=== PATIENT | female | born 1950 | race African-American/Black ===

== ENCOUNTER 2020-08-10 13:19 | Outpatient (CLI) | payer MEDICARE, SELFPAY ==
--- NOTE | ~2020-08-10 | CT_ITS ---
EXAMINATION: CTA chest PE protocol DATE: 08/10/2020 14:11 CDT INDICATION: Right ventricular enlargement. TECHNIQUE: Computed tomographic angiography (CTA) of the chest was performed with 100 mL Omnipaque-35 0 intravenous contrast. The dose-length product was 628.41 mGy-cm. Maximum intensity projection 3D-re constructions of the aorta and other arteries were constructed by the technologist on a separate work station. Automated exposure control and iterative reconstruction technique were employed. COMPARISON: None. FINDINGS: The study is technically adequate without evidence for pulmonary embolism. There is pulmona ry arterial enlargement, consistent with pulmonary hypertension. No significant pleural or pericardia l effusion. No thoracic lymphadenopathy. There is dependent atelectasis. No focal airspace consolidat ion. There is a 7 mm right lower lobe nodule, image 89. No pneumothorax. There is a 3 mm. Fissural no dule, coronal image 68. IMPRESSION: 1. No evidence for pulmonary embolism. No acute cardiopulmonary disease. 2: Pulmonary arterial hypertension. 3: 7 mm right lower lobe nodule. Follow-up CT chest at C6-12 months, then CT at 18-24 months recomme nded if stable. Reviewed, dictated and finalized at location A. IMPRESSION: 1. No evidence for pulmonary embolism. No acute cardiopulmonary disease. 2: Pulmonary arterial hypertension. 3: 7 mm right lower lobe nodule. Follow-up CT chest at C6-12 months, then CT a t 18-24 months recommended if stable.
[2020-08-10 14:15] LABS: Estimated Glomerular Filt Rate > 60
== END 2020-08-10 13:20 | disposition home or self-care (01) ==
PROVIDERS: PCP Family Medicine; Visit Provider Internal Medicine Cardiovascular Disease
DX: R06.09 Other forms of dyspnea (principal); I51.7 Cardiomegaly; R06.02 Shortness of breath; R91.1 Solitary pulmonary nodule
CPT/HCPCS: 71275; Q9967

== ENCOUNTER 2020-08-23 12:25 | Outpatient (CLI) | payer MEDICARE, SELFPAY ==
--- NOTE | ~2020-08-23 | MMUS_ITS ---
EXAMINATION: MM diagnostic skyler BI w yamilka, US breast RT limited HISTORY: Right breast pain TECHNIQUE: Additional 3-D tomosynthesis images of the breasts were performed and synthetic 2-D images were generated. CAD analysis was submitted and interpreted. High resolution Limited right breast ult rasound was performed. COMPARISON: Comparison to multiple prior studies sequentially, with oldest reviewed study dated 08/17. BREAST PARENCHYMAL COMPOSITION: BREAST PARENCHYMAL COMPOSITION: There are scattered areas of fibroglandular density. FINDINGS: MAMMOGRAPHIC FINDINGS: There are no suspicious masses, calcifications or architectural distortion in either breast to sugges t malignancy. ULTRASOUND: Limited left breast ultrasound: Normal heterogeneous echotexture without focal solid or cystic mass. IMPRESSION: 1. No mammographic or sonographic evidence for malignancy. 2. Routine yearly screening mammogram and regular clinical breast examination are recommended. BI-RADS Category 1: Negative Reviewed, dictated and finalized at location A. IMPRESSION: 1. No mammographic or sonographic evidence for malignancy. 2. Routine yearly screening mammogram and regular clinical breast examination a re recommended. BI-RADS Category 1: Negative
== END 2020-08-23 12:26 | disposition home or self-care (01) ==
PROVIDERS: PCP Family Medicine; Visit Provider Family Medicine
DX: N64.4 Mastodynia (principal)
CPT/HCPCS: 76642; 77062; 77066; G0279

== ENCOUNTER 2020-08-25 00:48 | Outpatient (CLI) | payer MEDICARE, SELFPAY ==
[2020-08-25 18:59] LABS: SARS-CoV-2 RNA PCR Negative
== END 2020-08-25 00:49 | disposition home or self-care (01) ==
LOC: ANHCOVIDDT 00:48
PROVIDERS: PCP Family Medicine; Visit Provider Internal Medicine Cardiovascular Disease
DX: Z01.812 Encounter for preprocedural laboratory examination (principal); Z20.828 Contact with and (suspected) exposure to other viral communicable diseases
CPT/HCPCS: 87635; C9803; U0003

== ENCOUNTER 2020-08-28 01:38 | Day surgery (SDC) | payer MEDICARE, SELFPAY ==
[2020-08-27 14:29] VITALS: BMI 34.8
[2020-08-28] VITALS (8 sets, daily range): BP systolic 122–151; BP diastolic 70–92; PULSE 65–76; RESP 14–19; TEMP 36.1; O2SAT 92–99
[2020-08-28 10:15] LABS: Basophils Absolute Auto 0.1 K/mm3 (0.0-0.1); Basophils Percent Auto 0.9 % (0.2-1.2); Eosinophils Absolute Auto 0.5 K/mm3 (0-0.3); Eosinophils Percent Auto 7.2 % (0-4.4); Hematocrit 46.4 % (37.0-47.0); Hemoglobin 15.7 g/dL (12.0-15.0); Immature Granulocyte Absolute 0.02 K/mm3 (0.00-0.031); Immature Granulocyte Percent A 0.3 % (0-0.5); Lymphocytes Absolute Auto 1.81 K/mm3 (0.9-3.2); Lymphocytes Percent Auto 28.5 % (18.3-44.2); Mean Corpuscular HGB Conc 33.8 g/dl (32-36); Mean Corpuscular Hemoglobin 31.2 pg (26-34); Mean Corpuscular Volume 92.1 fl (80-100); Mean Platelet Volume 9.5 fl (7.4-10.4); Monocytes Absolute Auto 0.6 K/mm3 (0.1-0.6); Monocytes Percent Auto 9.9 % (2.6-8.5); Neutrophils Absolute Auto 3.4 K/mm3 (1.3-6.7); Neutrophils Percent Auto 53.2 % (45.5-73.1); Platelet Count Result 287 k/mm3 (150-375); Red Blood Count 5.04 M/mm3 (4.2-5.4); Red Cell Distribution Width 13.1 % (11.5-14.5); White Blood Count 6.4 K/mm3 (4.5-10.0)
[2020-08-28 10:26] LABS: Anion Gap 9 mmol/L (8-16); Blood Urea Nitrogen 17 mg/dL (7-17); Calcium 9.8 mg/dL (8.4-10.2); Carbon Dioxide 30 mmol/L (22-30); Chloride 102 mmol/L (98-107); Estimated CRCL calculation 54 ml/min; Estimated Glomerular Filt Rate > 60; Glucose 113 mg/dL (65-105); Potassium 3.9 mmol/L (3.4-5.0); Sodium 141 mmol/L (137-145)
--- NOTE | 2020-08-28 10:34 | WPDMODSED ---
Moderate Sedation Note-Pt Data Patient Data Allergies Allergy/AdvReac Type Severity Reaction Status Date / Time codeine Allergy Unknown Unknown Verified 08/16/20 14:23 Keazykf-Fjf-Xyt Reductase Allergy Unknown myalgia Verified 08/16/20 14:23 Inhibitor metoprolol AdvReac Severe LOC Verified 08/16/20 14:23 hydromorphone AdvReac Unknown Nausea and Verified 08/16/20 14:23 Vomiting Home Medications Medication Instructions Recorded Confirmed Type aspirin 81 mg tablet,delayed 81 mg PO DAILY #90 tablet 05/01/20 08/27/20 Rx release ergocalciferol (vitamin D2) 1,250 50,000 unit PO WEEKLY #14 cap 05/01/20 08/27/20 Rx mcg (50,000 unit) capsule metformin 500 mg tablet,extended 500 mg PO BID #180 tablet 05/01/20 08/27/20 Rx release 24 hr omeprazole 40 mg capsule,delayed 40 mg PO DAILY #90 cap 07/19/20 08/27/20 Rx release diltiazem HCl 120 mg 120 mg PO Q12H #60 cap 08/16/20 08/27/20 Rx capsule,extended release 12 hr ezetimibe 10 mg tablet 10 mg PO DAILY #90 tablet 08/16/20 08/27/20 Rx hydralazine 25 mg tablet 25 mg PO TID #90 tablet 08/16/20 08/27/20 Rx irbesartan 150 1 tablet PO DAILY #90 tablet 08/16/20 08/27/20 Rx mg-hydrochlorothiazide 12.5 mg tablet furosemide 20 mg tablet 20 mg PO QAM #30 tablet 08/20/20 08/27/20 Rx cyanocobalamin (vitamin B-12) 100 mcg PO DAILY 08/27/20 08/27/20 History olmesartan-hydrochlorothiazide 1 tablet PO DAILY 08/27/20 08/27/20 History [Benicar HCT] Current Medications: Active Medications Sodium Chloride (Normal Saline Iv) 500 mls @ 100 mls/hr IV CONT .Q5H KAYLEE Sedation/Anesthesia: No previous sedation/anesthesia problems (including family history). [facility] Past Medical History Medical History (Updated 08/26/20 @ 17:29 by Radha Bruno MD) Abdominal aortic atherosclerosis Asthma Atherosclerosis of iliac artery Benign reactive hypertension Borderline diabetes Controlled diabetes mellitus without complication Coronary atherosclerosis Mixed hyperlipidemia Obesity (BMI 35.0-39.9 without comorbidity) Pulmonary HTN Family History Family History Mother Hypertension Cerebrovascular accident Family history of diabetes mellitus in first degree relative Diabetes mellitus Sibling Diabetes mellitus Hypertension Father Family history of malignant neoplasm of esophagus Other Family history of cardiovascular disease Family history of malignant neoplasm Family history of malignant neoplasm of breast Family history of malignant neoplasm of thyroid Social History Social History (Updated 08/16/20 @ 14:24 by Connie Castillo) Social History: Smoking status: Never smoker Second hand tobacco smoke exposure: Yes Alcohol intake: never Substance use: never Substance use type: does not use Living arrangements: alone Additional living arrangements comments: pt lives with her son Gender identity (if verbalized by the patient): Female Spiritual care concerns: No Mod Sed Physical Exam Physical Exam Pre Procedural Exam: Normal: Airway Hours since solid foods: 10 Hours since liquid intake: 10 Internal Medicine - PN: Obj Da Meds/Results Medications: Active Medications Generic Name Dose Route Start Last Admin Trade Name Jose Fq PRN Reason Stop Dose Admin Sodium Chloride 500 mls @ 100 mls/hr 08/28/20 06:00 Normal Saline Iv IV CONT .Q5H KAYLEE Labs CBC & Chem 7: 08/28/20 10:04 08/28/20 10:04 Labs: Laboratory Results - last 24 hr 08/28/20 08/28/20 10:04 10:04 WBC 6.4 RBC 5.04 Hgb 15.7 H Hct 46.4 MCV 92.1 MCH 31.2 MCHC 33.8 RDW 13.1 Plt Count 287 MPV 9.5 Immature Gran % (Auto) 0.3 Neut % (Auto) 53.2 Lymph % (Auto) 28.5 [place] % (Auto) 9.9 H Eos % (Auto) 7.2 H Baso % (Auto) 0.9 Lymph # (Auto) 1.81 [place] # (Auto) 0.6 Eos # (Auto) 0.5 H Baso # (Auto) 0.1 Abs Immat
[2020-08-28 10:41] LABS: INR 0.9
--- NOTE | 2020-08-28 10:58 | WPDHPUPDATE1 ---
History and Physical Update Update Date/Time: 08/28/20 10:58 History and Physical has been reviewed, including an updated exam of the patient. There are NO changes in the patient's condition. Risks, benefits, and alternatives have been discussed and questions answered. Patient agrees to proceed with procedure.
--- NOTE | 2020-08-28 12:01 | WPDCARDPROC ---
Cardiac Cath Procedure Note Date of procedure:: 08/28/20 Performing physician:: Mg Canales MD Procedure Procedure note:: RIGHT AND LEFT HEART CATHETERIZATION AND CORONARY ANGIOGRAM REPORT DATE OF PROCEDURE: 08/28/2020 INDICATION FOR PROCEDURE: Shortness of breath, pulmonary hypertension BRIEF CLINICAL HISTORY: 69-year-old female with system hypertension, diabetes mellitus, recently diagnosed severe pulmonary hypertension was reported by Dr. De Souza for a right and left heart catheterization in the setting of worsening shortness of breath and abnormal MPI . Patient's echocardiogram from 08/16/2020 showed hyperdynamic LV systolic function, moderate RV enlargement, severe pulmonary hypertension with RVSP 82 mmHg, mild TR. Benefits and risks of the procedure were discussed with the patient in depth, and informed consent was obtained prior to the procedure. Risks of the procedure include but are not limited to vascular complications including groin hematoma, retroperitoneal bleed, vessel perforation; periprocedural [place], cardiac arrhythmias, stroke, contrast induced nephropathy, and . After discussing all the benefits, risks and alternatives, patient was willing to proceed with the procedure. PROCEDURES PERFORMED: 1. Left heart catheterization- Selective left and right coronary angiogram; left ventriculogram and hemodynamic assessment 2. Right heart catheterization with hemodynamic assessment 3. Selective right common femoral angiogram and deployment of Angio-Seal hemostatic device 4. Moderate sedation-CPT code 43879 MODERATE SEDATION: Midazolam 1 mg; fentanyl 25 mcg; Start time 1057 , Stop time 1152 ; Total [id number]-[id number] time 55 minutes; Sena Lamar RN was trained observer for moderate sedation. ACCESS SITE: Right common femoral artery and vein PROCEDURE NOTE: After obtaining informed consent, patient was brought to catheterization lab and prepped and draped in a usual sterile manner. After local anesthesia with lidocaine, right common femoral artery access was taken with micropuncture needle followed by insertion of a 5 German sheath. Right common femoral venous access was taken with micropuncture needle followed by insertion of a 7 German sheath. Right heart catheterization was performed using C Staples-Efrain catheter. Pressures were measured in the right atrium, right ventricle, pulmonary artery, pulmonary capillary. O2 saturations were taken from the femoral artery, right atrium, right ventricle, pulmonary artery. Cardiac output was measured using Madhu's method. After completion of right heart catheterization, attention was shifted to the left heart catheterization. Selective left and right coronary angiogram was performed using 5 German JL4 and JR4 catheters respectively. Orthogonal views were taken. Next, a 5 German pigtail catheter was advanced in the LV cavity and was flushed with normal saline. LV pressure measurement was performed. After this, left ventriculogram was performed. The catheter was flushed again, and gradient across the aortic valve was measured on the pullback of the catheter. Finally, selective right common femoral angiogram was performed followed by successful deployment of Angio-Seal vascular closure device. Manual pressure was used for local hemostasis of femoral venous access site. Patient tolerated procedure well without any immediate procedure related complications. FINDINGS: LEFT HEART CATHETERIZATION: LEFT MAIN CORONARY: The left main coronary artery is a large caliber vessel, no angiographic significant focal stenosis seen. The vessel bifurcates in the LAD and left circumflex branches at almost right angles. LEFT ANTERIOR DESCENDING ARTERY: the LAD is a medium to large caliber vessel in the proximal and mid segment, tortuous, tapers distally and reaches the LV apex. There is minimal block in the prox/mid segment and a focal area of minimal plaque with kinking in the mid segment at the orig
== END 2020-08-28 16:15 | disposition home or self-care (01) ==
PROVIDERS: PCP Family Medicine; Visit Provider Internal Medicine Cardiovascular Disease
PROC: 4A023N8 Measurement of Cardiac Sampling and Pressure, Bilateral, Percutaneous Approach (ICD-10-PCS; CPT 93453; principal; 2020-08-28 11:00)
DX: R94.39 Abnormal result of other cardiovascular function study (principal); I27.20 Pulmonary hypertension, unspecified; R06.02 Shortness of breath; J44.9 Chronic obstructive pulmonary disease, unspecified; R01.1 Cardiac murmur, unspecified; Z80.0 Family history of malignant neoplasm of digestive organs; I51.7 Cardiomegaly; E11.59 Type 2 diabetes mellitus with other circulatory complications
CPT/HCPCS: 36415; 80048; 85025; 85610; 93460; C1760; C1887; C1894; G0269; J1644; J2250; J3010; J7040

== ENCOUNTER 2021-02-24 22:56 | Emergency (ER) | payer MEDICARE, SELFPAY ==
--- NOTE | ~2021-02-24 | CT_ITS ---
EXAMINATION: CT abdomen pelvis w con EXAM DATE: 02/25/2021 01:35 INDICATION: Abdominal pain, left flank pain, symptoms 1 day. TECHNIQUE: Spiral CT of the abdomen and pelvis was performed following intravenous injection of 100 m L Omnipaque 350. Axial, coronal and sagittal images of the abdomen and pelvis were reviewed. The do se-length product (DLP) for this examination was 1231.80 mGy-cm. The exposure was tailored according to patient size (auto mA exposure control), and iterative reconstruction (ASIR) was used as addition al dose reduction technique. Comparison is made to prior examination from 01/17/2018. FINDINGS: Evidence of prior laparotomy and right inguinal surgery. The liver, spleen, adrenal glands and pancreas are unremarkable. Gallbladder is unremarkable. No biliary obstruction. Portal and sp lenic veins are patent. Kidneys enhance symmetrically. There is no hydronephrosis. The uterus is anteverted and morphologically normal. The bladder is unremarkable. There is no retroperitoneal or pelvic lymphadenopathy. There is mild to moderate scattered arteriosclerotic disease. The appendix is normal. The stomach and small bowel are unremarkable. There is expected amount of c olonic stool. No free intraperitoneal gas. The heart is normal in size. The main, central pulmona ry arteries are dilated which can indicate elevated pulmonary arterial pressure, pulmonary arterial h ypertension. There are no pericardial or pleural effusions. The lung bases are unremarkable. There are no osteoblastic or osteolytic lesions identified. IMPRESSION: 1. No acute intra-abdominal findings. 2. Pulmonary arterial hypertension. Reviewed, dictated and finalized at location A.
[2021-02-24 23:00] VITALS: BP 157/93; PULSE 93; RESP 20; TEMP 36.6; O2SAT 94
[2021-02-24 23:15] LABS: Basophils Percent Auto 0.6 % (0.2-1.2); Eosinophils Absolute Auto 0.5 K/mm3 (0-0.3); Eosinophils Percent Auto 6.8 % (0-4.4); Hematocrit 43.5 % (37.0-47.0); Hemoglobin 14.4 g/dL (12.0-15.0); Immature Granulocyte Absolute 0.02 K/mm3 (0.00-0.031); Immature Granulocyte Percent A 0.3 % (0-0.5); Lymphocytes Absolute Auto 2.65 K/mm3 (0.9-3.2); Lymphocytes Percent Auto 38.2 % (18.3-44.2); Mean Corpuscular HGB Conc 33.1 g/dl (32-36); Mean Corpuscular Hemoglobin 30.6 pg (26-34); Mean Corpuscular Volume 92.6 fl (80-100); Mean Platelet Volume 9.2 fl (7.4-10.4); Monocytes Percent Auto 14.3 % (2.6-8.5); Neutrophils Absolute Auto 2.8 K/mm3 (1.3-6.7); Neutrophils Percent Auto 39.8 % (45.5-73.1); Platelet Count Result 235 k/mm3 (150-375); Red Cell Distribution Width 13.6 % (11.5-14.5); White Blood Count 6.9 K/mm3 (4.5-10.0)
[2021-02-24 23:29] LABS: Alanine Aminotransferase 22 U/L (4-35); Albumin Level 4.3 g/dL (3.5-5.1); Alkaline Phosphatase 56 U/L (38-126); Anion Gap 7 mmol/L (8-16); Aspartate Amino Transferase 37 U/L (14-36); Bilirubin,Total 0.4 mg/dL (0.2-1.3); Blood Urea Nitrogen 22 mg/dL (7-17); Calcium 9.3 mg/dL (8.4-10.2); Carbon Dioxide 30 mmol/L (22-30); Chloride 103 mmol/L (98-107); Estimated CRCL calculation 49 ml/min; Estimated Glomerular Filt Rate 59; Glucose 108 mg/dL (65-105); Lipase 158 U/L (23-300); Potassium 3.7 mmol/L (3.4-5.0); Sodium 140 mmol/L (137-145)
[2021-02-25 00:28] LABS: Add Urine Microscopic? YES; Appearance Urine Clear (Clear); Bilirubin Urine Negative (Negative); Blood Urine Negative (Negative); Color Urine Yellow (Yellow); Glucose Urine UA Negative (Negative); Ketones Urine Negative (Negative); Leukocyte Esterase Ur Trace LEU/UL (Negative); Mucus Urine Rare /lpf; Nitrate Urine Negative (Negative); Protein Urine 1+ mg/dL (Negative); RBC Urine 0-2 /hpf (0-2); Specific Grav Ur 1.023 (1.001-1.035); Squamous Epithelial Cell Urine Few /hpf (Few); WBC Urine 0-3 /hpf
--- NOTE | 2021-02-25 01:05 | ED.ABDPAIN ---
HPI - Abdominal Pain General Chief Complaint: Abdominal Pain Stated Complaint: left flank and back pain Time Seen by Provider: 02/25/21 00:49 Source: RN notes reviewed History of Present Illness HPI narrative: Patient presents emergency department from home for abdominal pain. Patient states symptoms began approximately 1400 today. Pain is located left lateral abdomen described as sharp and stabbing. Pain is worse with movement denies any nausea vomiting diarrhea or any other symptoms states she took no pain medication for the symptoms at home. Denies any fevers or chills chest pain shortness of breath Related Data Home Medications Medication Instructions Recorded Confirmed cyanocobalamin (vitamin B-12) 100 mcg PO DAILY 08/27/20 09/20/20 olmesartan-hydrochlorothiazide 1 tablet PO DAILY 08/27/20 09/20/20 [Benicar HCT] Allergies Allergy/AdvReac Type Severity Reaction Status Date / Time codeine Allergy Unknown Unknown Verified 02/24/21 23:04 Ssmmxog-Kkd-Acw Reductase Allergy Unknown myalgia Verified 02/24/21 23:04 Inhibitor metoprolol AdvReac Severe LOC Verified 02/24/21 23:04 hydromorphone AdvReac Unknown Nausea and Verified 02/24/21 23:04 Vomiting Review of Systems Review of Systems: Narrative: Gen.: Denies fevers or chills ENT: Denies congestion Respiratory: Denies shortness of breath or cough CV: Denies chest pain or palpitations GI: See HPI denies burning, urgency, frequency or hematuria Musculoskeletal: Denies back pain or muscle pain Neuro: Denies numbness, tingling, weakness or focal weakness Skin: Denies rash Except as documented, all other systems reviewed and negative [facility] Past Medical History Medical History Abdominal aortic atherosclerosis Asthma Atherosclerosis of iliac artery Benign reactive hypertension Borderline diabetes Controlled diabetes mellitus without complication Coronary atherosclerosis Mixed hyperlipidemia Obesity (BMI 35.0-39.9 without comorbidity) Pulmonary HTN Sleep disorder Family History Family History Mother Hypertension Cerebrovascular accident Family history of diabetes mellitus in first degree relative Diabetes mellitus Sibling Diabetes mellitus Hypertension Father Family history of malignant neoplasm of esophagus Other Family history of cardiovascular disease Family history of malignant neoplasm Family history of malignant neoplasm of breast Family history of malignant neoplasm of thyroid Social History Social History Social History: Smoking status: Never smoker Second hand tobacco smoke exposure: Yes Alcohol intake: never Substance use: never Substance use type: does not use Additional living arrangements comments: pt lives with her son Gender identity (if verbalized by the patient): Female Spiritual care concerns: No Exam Narrative: Exam Narrative: APPEARANCE: No acute distress, nontoxic, resting in bed HEENT: Normocephalic, atraumatic, OMM RESPIRATORY: No respiratory distress, clear to auscultation bilaterally with no rhonchi wheezing or rales CARDIOVASCULAR: RRR s murmur ABDOMINAL: Soft nondistended tender to palpation left lateral abdomen no tenderness right upper quadrant and right lower quadrant no flank tenderness MUSCULOSKELETAl: Moves all extremities. No clubbing, cyanosis or edema. Back: No midline thoracic or lumbar tenderness palpation tender palpation left paravertebral muscles T2-4 pain increased with rotation of the torso and forward flexion NEURO: Awake and alert. Following commands, speech normal, no focal deficits SKIN:: Warm, dry. Normal Color PSYCHIATRIC: Normal affect/mood Course Course Emergency Course: Discussed with patient results of workup and diagnosis. Discussed need for follow-up with primary care, proper use of m
[2021-02-25 01:12] VITALS: BP 160/101; PULSE 82; RESP 15; O2SAT 96
[2021-02-25] MEDS: SODIUM CHLORIDE 0.9% IV 1,000 ML 999 ML IV CONT (01:17)
[2021-02-25 02:55] VITALS: BP 143/101; PULSE 75; RESP 19; O2SAT 96
--- NOTE | 2021-02-25 03:08 | PC.NURSE ---
Upon discharge pt. ambulating w/ rn along side. pt. stops and states she is short of breath. RN placed pt. in wheelchair. Pt. states she does not want to be treated for this. pt. states she sees her PCP for this. ERP notified.
== END 2021-02-25 02:55 | disposition home or self-care (01) ==
PROVIDERS: Emergency Provider Emergency Medicine; PCP Family Medicine
DX: M54.5 Low back pain (principal); I70.0 Atherosclerosis of aorta; I70.8 Atherosclerosis of other arteries; J45.909 Unspecified asthma, uncomplicated; I10 Essential (primary) hypertension; E11.9 Type 2 diabetes mellitus without complications; E78.2 Mixed hyperlipidemia; E66.9 Obesity, unspecified; Z68.35 Body mass index [BMI] 35.0-35.9, adult; I27.20 Pulmonary hypertension, unspecified; G47.9 Sleep disorder, unspecified; Z79.84 Long term (current) use of oral hypoglycemic drugs
CPT/HCPCS: 36415; 74177; 80053; 81001; 83690; 85025; 96361; 96374; 99284; J0131; J7030; Q9967

== ENCOUNTER 2021-09-25 08:03 | Outpatient (CLI) | payer MEDICARE, SELFPAY ==
--- NOTE | ~2021-09-25 | MM_ITS ---
EXAMINATION: MM screening skyler BI w yamilka HISTORY: Screening mammogram TECHNIQUE: Craniocaudal and mediolateral oblique 3-D tomosynthesis images were obtained and synthetic 2-D images were generated. CAD analysis was submitted and interpreted. COMPARISON: 09/04/2020 bilateral diagnostic mammogram and limited right breast ultrasound 09/19/2019, 08/03/2018 bilateral screening mammogram examinations BREAST PARENCHYMAL COMPOSITION: There are scattered areas of fibroglandular density. FINDINGS: There is no evidence of suspicious mass, calcification, or architectural distortion to sugg est malignancy in either breast. There has been no suspicious interval change. IMPRESSION: 1. No mammographic evidence of malignancy. 2. Recommend routine screening mammography in one year. BI-RADS Category 1: Negative Reviewed, dictated and finalized at location A. RR TECHNICIAN
== END 2021-09-25 08:04 | disposition home or self-care (01) ==
LOC: ANHIMG 08:05
PROVIDERS: PCP Family Medicine; Visit Provider Physician Assistant
DX: Z12.31 Encounter for screening mammogram for malignant neoplasm of breast (principal)
CPT/HCPCS: 77063; 77067

== ENCOUNTER 2021-10-15 23:14 | Emergency (ER) | payer MEDICARE, SELFPAY ==
[2021-10-15 23:22] VITALS: BP 191/99; PULSE 101; RESP 17; TEMP 36.4; O2SAT 97
--- NOTE | 2021-10-16 01:22 | ECG_ITS ---
Measurements Intervals [place] Rate: 80 P: 73 CA: 180 QRS: 116 QRSD: 102 T: -35 QT: 399 QTc: 463 Interpretive Statements SINUS RHYTHM RIGHT AXIS DEVIATION POSSIBLE LEFT ATRIAL ENLARGEMENT ST-T WAVE ABNORMALITY IN ANTEROLAT/INF LEADS- CONSIDER ISCHEMIA ABNORMAL ECG Electronically Signed On 10-16-2021 6:37:32 SENIOR JAVA DEVELOPER by Temo Burciaga D.O.
[2021-10-16 01:38] VITALS: BP 158/101
[2021-10-16 01:45] LABS: Basophils Percent Auto 0.6 % (0.2-1.2); Eosinophils Absolute Auto 0.5 K/mm3 (0-0.3); Eosinophils Percent Auto 6.9 % (0-4.4); Hematocrit 41.5 % (37.0-47.0); Hemoglobin 13.9 g/dL (12.0-15.0); Immature Granulocyte Absolute 0.03 K/mm3 (0.00-0.031); Immature Granulocyte Percent A 0.4 % (0-0.5); Lymphocytes Absolute Auto 1.69 K/mm3 (0.9-3.2); Lymphocytes Percent Auto 24.7 % (18.3-44.2); Mean Corpuscular HGB Conc 33.5 g/dl (32-36); Mean Corpuscular Hemoglobin 31.7 pg (26-34); Mean Corpuscular Volume 94.7 fl (80-100); Mean Platelet Volume 9.2 fl (7.4-10.4); Monocytes Absolute Auto 0.8 K/mm3 (0.1-0.6); Neutrophils Absolute Auto 3.9 K/mm3 (1.3-6.7); Neutrophils Percent Auto 56.4 % (45.5-73.1); Platelet Count Result 274 k/mm3 (150-375); Red Blood Count 4.38 M/mm3 (4.2-5.4); Red Cell Distribution Width 13.5 % (11.5-14.5); White Blood Count 6.8 K/mm3 (4.5-10.0)
[2021-10-16 01:58] LABS: Alanine Aminotransferase 19 U/L (4-35); Albumin Level 4.4 g/dL (3.5-5.1); Alkaline Phosphatase 64 U/L (38-126); Anion Gap 12 mmol/L (8-16); Aspartate Amino Transferase 30 U/L (14-36); Bilirubin,Total 0.8 mg/dL (0.2-1.3); Blood Urea Nitrogen 17 mg/dL (7-17); Calcium 9.3 mg/dL (8.4-10.2); Carbon Dioxide 25 mmol/L (22-30); Chloride 102 mmol/L (98-107); Estimated CRCL calculation 63 ml/min; Estimated Glomerular Filt Rate > 60; Glucose 114 mg/dL (65-110); Potassium 3.3 mmol/L (3.4-5.0); Sodium 139 mmol/L (137-145)
[2021-10-16 02:09] LABS: Troponin I < 0.012 ng/mL (0.000-0.034)
[2021-10-16 03:06] VITALS: BP 150/98; PULSE 82; RESP 18; O2SAT 97
--- NOTE | 2021-10-16 03:10 | ED.GENADULT ---
HPI - General Adult General Chief complaint: Recheck/Abnormal Lab/Rx Stated complaint: high blood pressure Time Seen by Provider: 10/16/21 00:49 History of Present Illness HPI narrative: Patient 70-year-old female presents emerged department with chief complaint of high blood pressure. The patient has history of hypertension and this evening took her blood pressure and it was elevated the patient states she had little bit of a mild headache denies chest pain denies shortness of breath denies focal neurological deficit. The patient states that she has history of pulmonary hypertension reports that her toe puncher removed some of her medications a few months ago and her blood pressure has been gradually trending up. Patient reports that symptoms or not worsened by anything or they improved by Related Data Home Medications Medication Instructions Recorded Confirmed cyanocobalamin (vitamin B-12) 100 mcg PO DAILY 08/27/20 08/29/21 tadalafil 20 mg tablet 40 mg PO DAILY tablet 02/28/21 08/29/21 treprostinil diolamine 2.5 mg 2.5 mg PO Q8H 07/09/21 08/29/21 tablet,extended release Allergies Allergy/AdvReac Type Severity Reaction Status Date / Time codeine Allergy Unknown Unknown Verified 10/16/21 00:40 Kcqgjgh-SHZ-KhD Reductase Allergy Unknown myalgia Verified 10/16/21 00:40 Inhibitor [Dwbeity-Ilz-Tcl Reductase Inhibitor] metoprolol AdvReac Severe LOC Verified 10/16/21 00:40 hydromorphone AdvReac Unknown Nausea and Verified 10/16/21 00:40 Vomiting Review of Systems Review of Systems: A 10 system review of systems was completed on the patient and is negative except for what is stated in the HPI. Nursing and ancillary documentation was reviewed. [facility] Past Medical History Medical History Abdominal aortic atherosclerosis Asthma Atherosclerosis of iliac artery Benign reactive hypertension Borderline diabetes Controlled diabetes mellitus without complication Coronary atherosclerosis Mixed hyperlipidemia Obesity (BMI 35.0-39.9 without comorbidity) Pulmonary HTN Sleep disorder Family History Family History Mother Hypertension Cerebrovascular accident Family history of diabetes mellitus in first degree relative Diabetes mellitus Sibling Diabetes mellitus Hypertension Father Family history of malignant neoplasm of esophagus Other Family history of cardiovascular disease Family history of malignant neoplasm Family history of malignant neoplasm of breast Family history of malignant neoplasm of thyroid Social History Social History Social History: Smoking status: Never smoker Second hand tobacco smoke exposure: Yes Alcohol intake: never Alcohol use details: rare, holidays Substance use: never Substance use type: does not use Additional living arrangements comments: pt lives with her son Gender identity (if verbalized by the patient): Female Sexual Orientation (if Verbalized by the Patient): Straight or Heterosexual Spiritual care concerns: No Exam Narrative: GENERAL: Well-appearing, well-nourished, and in no acute distress. HEAD: Normocephalic, atraumatic. EYES: PERRLA and EOMI. ENT: Nares clear, no rhinorrhea or epistaxis. Mucous membranes moist. NECK: Supple. CHEST: Clear to auscultation. No respiratory distress. HEART: Regular rate and rhythm. No murmur heard. Normal peripheral pulses. ABDOMEN: Soft, nontender, nondistended, normal active bowel sounds. EXTREMITIES: Normal range of motion. No edema. SKIN: Warm, dry, no rash. NEURO: No focal deficits. Alert and oriented x3. PSYCH: Normal mood and affect. Course Course Emergency Course: EKG is sinus rhythm rate of [address] elevation or ST depression Vital Signs Vital signs: Vital Signs Temperature 3
== END 2021-10-16 03:29 | disposition home or self-care (01) ==
PROVIDERS: Emergency Provider Emergency Medicine; PCP Family Medicine
DX: I10 Essential (primary) hypertension (principal); J45.909 Unspecified asthma, uncomplicated; I27.20 Pulmonary hypertension, unspecified
CPT/HCPCS: 36415; 80053; 84484; 85025; 93005; 99283

== ENCOUNTER 2021-11-12 13:53 | Outpatient (CLI) | payer MEDICARE, SELFPAY ==
--- NOTE | ~2021-11-12 | DEXA_ITS ---
Bone Density Report Name: JORGE ROSADO Age: 71 Sex: Female Ethnicity: Black Date of : 1950 Indication: postmenopausal; height loss; asthma or emphysema; hysterectomy; Referring Provider: JEOVANY, FRANCISCO Skelton Study: Bone densitometry was performed. Exam Date: November 12, 2021 Accession number: [id number] Bone Density: Region BMD T-score Z-score Classification AP Spine (L1-L4) 0.980 -0.6 1.0 Normal Femoral Neck (Left) 0.860 0.1 0.9 Normal Total Hip (Left) 0.885 -0.5 0.3 Normal Total Hip Bilateral Avg 0.901 -0.4 0.4 Normal Femoral Neck (Right) 0.900 0.5 1.2 Normal Total Hip (Right) 0.917 -0.2 0.5 Normal World Health Organization criteria for BMD impression classify patients as: Normal (T-score at or above -1.0), Osteopenia (T-score between -1.0 and -2.5), or Osteoporosis (T-score at or below -2.5). 10-year Fracture Risk: FRAX not reported because: All T-scores for Spine Total, Hip Total, Femoral Neck at or above -1.0 Previous Exams: Region Exam Age BMD T-score BMD Change BMD Change Date g/cm2 vs Baseline vs Previous AP Spine(L1-L4) 11/12/2021 71 0.980 -0.6 0.054(5.8%)# 0.042(4.4%)* 08/03/2018 67 0.939 -1.0 0.012(1.3%)# -0.021(-2.2%) 10/16/2015 64 0.960 -0.8 0.034(3.6%)# -0.026(-2.6%)# 09/09/2013 62 0.986 -0.6 0.060(6.4%)# -0.022(-2.2%)# 01/23/2011 60 1.008 -0.4 0.082(8.8%)* 0.030(3.1%)* 04/15/2005 54 0.978 -0.6 0.052(5.6%)* 0.052(5.6%)* 02/22/2004 53 0.926 -1.1 Total Hip(Left) 11/12/2021 71 0.885 -0.5 -0.031(-3.4%)# -0.022(-2.4%) 08/03/2018 67 0.906 -0.3 -0.009(-1.0%)# 0.030(3.4%)* 10/16/2015 64 0.876 -0.5 -0.039(-4.3%)# -0.022(-2.5%)# 09/09/2013 62 0.898 -0.4 -0.017(-1.8%)# 0.033(3.8%)# 01/23/2011 60 0.865 -0.6 -0.050(-5.5%)* -0.047(-5.1%)* 04/15/2005 54 0.912 -0.2 -0.003(-0.4%) -0.003(-0.4%) 02/22/2004 53 0.915 -0.2 Total Hip(Right) 11/12/2021 71 0.917 -0.2 -0.043(-4.5%)# -0.024(-2.6%) 08/03/2018 67 0.941 0.0 -0.019(-2.0%)# 0.004(0.5%) 10/16/2015 64 0.937 0.0 -0.023(-2.4%)# -0.024(-2.5%)# 09/09/2013 62 0.960 0.2 0.001(0.1%)# 0.015(1.5%)# 01/23/2011 60 0.946 0.0 -0.014(-1.5%) -0.010(-1.0%) 04/15/2005 54 0.956 0.1 -0.004(-0.4%) -0.004(-0.4%) 02/22/2004 53 0.960 0.1 *Denotes significance at 95% confidence level, LSC for AP Spine = 0.022 g/cm2, LSC for Total Hip = 0.027 g/cm2 Clinical Information Provided by Patient:
== END 2021-11-12 13:54 | disposition home or self-care (01) ==
LOC: ANHIMG 13:55
PROVIDERS: PCP Family Medicine; Visit Provider Physician Assistant
DX: Z78.0 Asymptomatic menopausal state (principal)
CPT/HCPCS: 77080

== ENCOUNTER 2023-03-11 15:28 | Outpatient (CLI) | payer MEDICARE, SELFPAY ==
--- NOTE | ~2023-03-11 | MM_ITS ---
EXAMINATION: MM screening skyler BI w yamilka HISTORY: Screening mammogram TECHNIQUE: Craniocaudal and mediolateral oblique 3-D tomosynthesis images were obtained and synthetic 2-D images were generated. CAD analysis was submitted and interpreted. COMPARISON: No prior mammogram is available for comparison at this institution. BREAST PARENCHYMAL COMPOSITION: There are scattered areas of fibroglandular density. FINDINGS: Right breast: There is no evidence of suspicious mass, calcification, or architectural distortion to suggest malignancy in the right breast. There has been no suspicious interval change. Left breast: There is interval change since 09/25/2021 with diffusely accentuated fibroglandular stro mal density throughout the left breast since the prior examination. Diagnostic left mammogram and complete left breast ultrasound examination are recommended. IMPRESSION: 1. Interval asymmetric accentuated fibroglandular stromal density throughout the left breast since 2. Diagnostic left mammogram and complete left breast ultrasound examination are recommended BI-RADS Category 0: Incomplete: Needs additional imaging evaluation. Reviewed, dictated and finalized at location A. IMPRESSION: 1. Interval asymmetric accentuated fibroglandular stromal density throughout th e left breast since 09/25/2021 2. Diagnostic left mammogram and complete left breast ultrasound examination ar e recommended BI-RADS Category 0: Incomplete: Needs additional imaging evaluation.
== END 2023-03-11 15:29 | disposition home or self-care (01) ==
LOC: ANHIMG 15:32
PROVIDERS: PCP Family Medicine; Visit Provider Family Medicine
DX: Z12.31 Encounter for screening mammogram for malignant neoplasm of breast (principal); R92.8 Other abnormal and inconclusive findings on diagnostic imaging of breast
CPT/HCPCS: 77063; 77067

== ENCOUNTER → 2023-03-27 09:21 | Outpatient (CLI) | payer MEDICARE, SELFPAY ==
--- NOTE | ~2023-03-27 | MMUS_ITS ---
EXAMINATION: MM diagnostic skyler LT w yamilka, US breast LT limited HISTORY: Left breast focal asymmetry on screening mammogram TECHNIQUE: Additional 3-D tomosynthesis images of the left breast were performed and synthetic 2-D im ages were generated. CAD analysis was submitted and interpreted. High resolution limited left breast ultrasound was performed. COMPARISON: 03/11/2023, 09/25/2021, 08/23/2020 FINDINGS: MAMMOGRAPHIC FINDINGS: There is persistent focal asymmetry in the anterior and middle third of the outer left breast. No angel picious mass, calcification, or architectural distortion are identified. ULTRASOUND: There is no evidence of focal abnormal solid or cystic mass in the vicinity of the left breast focal asymmetry. There is a 6 mm x 4 mm oval, circumscribed, parallel, hypoechoic mass with no posterior fe atures or internal vascularity mass at the 12:00 location near the nipple. Lymph nodes with normal mo rphology are noted in the left axilla. IMPRESSION: 1. Focal asymmetry of the anterior and middle third of the outer left breast which persists with spot compression and is new compared to prior examinations. Given the absence of an ultrasound correlate, stereotactic biopsy of the region is recommended. 2. Probably benign sonographically detected mass at the 12:00 location of the left breast. If stereot actic biopsy is negative, follow-up targeted left breast ultrasound in six months is recommended. BI-RADS category 4, suspicious findings. Reviewed, dictated and finalized at location A. IMPRESSION: 1. Focal asymmetry of the anterior and middle third of the outer left breast wh ich persists with spot compression and is new compared to prior examinations. G iven the absence of an ultrasound correlate, stereotactic biopsy of the region is recommended. 2. Probably benign sonographically detected mass at the 12:00 location of the l eft breast. If stereotactic biopsy is negative, follow-up targeted left breast ultrasound in six months is recommended. BI-RADS category 4, suspicious findings.
== END ==
PROVIDERS: PCP Family Medicine; Visit Provider Physician Assistant
DX: R92.8 Other abnormal and inconclusive findings on diagnostic imaging of breast (principal)
CPT/HCPCS: 76642; 77061; 77065; G0279

== ENCOUNTER 2023-05-06 10:06 | Outpatient (CLI) | payer MEDICARE, SELFPAY ==
--- NOTE | ~2023-05-06 | MR_ITS ---
MR breast BI wo/w con 05/06/2023 16:49 CDT INDICATION: Left breast asymmetry seen on recent examination. TECHNIQUE: MRI of the breasts perform using standard protocol pre-and post IV contrast with 19 cc Mul tiHance the following sequences: Axial T2 STIR, axial T1, axial vibrant T1 with fat suppression preco ntrast and multiphasic postcontrast. COMPARISON: Diagnostic mammogram and ultrasound dated 03/27/2023 FINDINGS: There are no abnormalities on the precontrast sequences. There is moderate background paren chymal enhancement. No enhancing lesions following contrast administration. No areas of enhancement meeting threshold criteria on CAD analysis. No evidence of signal abnormalities in the axillary or internal mammary node distributions. LEFT BREAST: No signal abnormalities on precontrast sequences. There is moderate background parenchy mal enhancement. In the upper inner quadrant of the left breast at 9:00 anteriorly, 5.3 cm from the n ipple there is a 12 x 7 x 6 mm mass exhibiting washout enhancement. In the lower outer quadrant of th e left breast at 5:00 there is an ill-defined area of nonmass-like plateau enhancement measuring 2.5 x 1 x 0.9 cm. This is located 4.7 cm from the nipple. Additionally, in the upper outer quadrant of th e left breast there are prominent lymph nodes, largest measuring 1.7 x 1.8 x 1.3 cm with washout enha ncement. There does appear to be residual fatty hilum. There is a second 11 mm lymph node at this loc ation in the upper outer quadrant at 1:00 posteriorly. IMPRESSION: 1: Right breast: Negative. No evidence of malignancy. BI-RADS category 1. Recommend annual mammo graphy follow-up. 2: Left breast: Abnormal mass in the upper inner quadrant of the left breast at 9:00, 5.3 cm from th e nipple measuring 12 mm exhibiting washout enhancement. Second area of nonmasslike enhancement is pr esent in the lower outer quadrant anteriorly at 5:00 measuring up to 2.5 cm and exhibiting plateau en hancement. Second Look left breast ultrasound in these areas of concern is recommended. BI-RADS Categ ory 0. Recommend repeat left breast ultrasound. If repeat ultrasound does not reveal a discrete mass in the areas of concern, consider further evaluation with MRI guided biopsy. Reviewed, dictated and finalized at location A. IMPRESSION: 1: Right breast: Negative. No evidence of malignancy. BI-RADS category 1. Recommend annual mammography follow-up. 2: Left breast: Abnormal mass in the upper inner quadrant of the left breast a t 9:00, 5.3 cm from the nipple measuring 12 mm exhibiting washout enhancement. Second area of nonmasslike enhancement is present in the lower outer quadrant a nteriorly at 5:00 measuring up to 2.5 cm and exhibiting plateau enhancement. Se cond Look left breast ultrasound in these areas of concern is recommended. BI-R ADS Category 0. Recommend repeat left breast ultrasound. If repeat ultrasound d oes not reveal a discrete mass in the areas of concern, consider further evalua tion with MRI guided biopsy.
== END 2023-05-06 10:07 | disposition home or self-care (01) ==
PROVIDERS: PCP Family Medicine; Visit Provider Surgery
DX: R92.8 Other abnormal and inconclusive findings on diagnostic imaging of breast (principal)
CPT/HCPCS: 77049; A9577; C8908

== ENCOUNTER 2023-08-12 07:53 | Emergency (ER) | payer MEDICARE, SELFPAY ==
[2023-08-12] VITALS (17 sets, daily range): BP systolic 118–170; BP diastolic 58–80; PULSE 76–100; RESP 11–26; TEMP 36.8; O2SAT 90–98
--- NOTE | 2023-08-12 07:58 | ED.ABDPAIN ---
HPI - Abdominal Pain General Chief Complaint: Abdominal Pain Stated Complaint: abdominal pain, diarrhea, dry heaving Time Seen by Provider: 08/12/23 07:55 History of Present Illness HPI narrative: Patient is a 72-year-old female who presents ER with abdominal discomfort and diarrhea. Cramping in the upper abdomen. Ongoing over the last week since having her pulmonary hypertension medication adjusted. She has 2-3 loose stools a day. No discoloration or blood. No known sick contacts. No fevers chills or sweats. Has had mild nausea but no vomiting. Related Data Home Medications Medication Instructions Recorded Confirmed cyanocobalamin (vitamin B-12) 100 100 mcg PO DAILY 08/27/20 04/24/23 mcg tablet tadalafil 20 mg tablet 40 mg PO DAILY 02/28/21 04/24/23 treprostinil diolamine 2.5 mg 2.5 mg PO Q8H 07/09/21 04/24/23 tablet,extended release (Orenitram) Allergies Allergy/AdvReac Type Severity Reaction Status Date / Time codeine Allergy Unknown Unknown Verified 08/12/23 08:19 Vlknixc-ZAF-NmI Reductase Allergy Unknown myalgia Verified 08/12/23 08:19 Inhibitor [Efqanaz-Cht-Iza Reductase Inhibitor] metoprolol AdvReac Severe LOC Verified 08/12/23 08:19 hydromorphone AdvReac Unknown Nausea and Verified 08/12/23 08:19 Vomiting Review of Systems Review of Systems: All systems reviewed & are unremarkable except as noted in HPI and below Constitutional: Constitutional: Denies chills, Denies fatigue and Denies fever(s) ENT: Denies nasal congestion and Denies sore throat Cardiovascular: Cardiovascular: Denies chest pain, Denies rapid heart rate and Denies radiating jaw, neck or arm pain Respiratory: Respiratory: Denies cough and Denies dyspnea Gastrointestinal: Gastrointestinal: Reports abdominal pain, Reports diarrhea, Reports nausea and Denies vomiting Genitourinary: Genitourinary: Reports no additional female genitourinary complaints PMFSH Past Medical History Medical History Abdominal aortic atherosclerosis Acquired deformity of left foot Acquired polycythemia Acute maxillary sinusitis, unspecified Asthma Atherosclerosis of aorta Atherosclerosis of both iliac arteries Atherosclerosis of iliac artery Benign reactive hypertension Borderline diabetes Controlled diabetes mellitus without complication Coronary atherosclerosis Impingement syndrome of right shoulder Mixed hyperlipidemia Mixed hyperlipidemia Moderate persistent asthma without complication Obesity (BMI 35.0-39.9 without comorbidity) Obesity, unspecified Postmenopausal Primary osteoarthritis of right shoulder Pulmonary emphysema Pulmonary HTN Pulmonary HTN Reactive airway disease with wheezing without complication Screening for diabetic peripheral neuropathy Sleep disorder Tendinitis of right rotator cuff Type 2 diabetes mellitus without complications Vitamin D deficiency, unspecified Wheezing Family History Family History Mother Hypertension Cerebrovascular accident Family history of diabetes mellitus in first degree relative Diabetes mellitus Sibling Diabetes mellitus Hypertension Father Family history of malignant neoplasm of esophagus Other Family history of cardiovascular disease Family history of malignant neoplasm Family history of malignant neoplasm of breast Family history of malignant neoplasm of thyroid Social History Social History Social History: Smoking status: Never smoker Second hand tobacco smoke exposure: Yes Alcohol intake: never Alcohol use details: rare, holidays Substance use: never Substance use type: does not use Lack of Transportation: No Lack of Food: Never True Current Housing: I Have Housing Concerned About Future Housing: No Difficulty Paying for Meds: YES Currently Unemployed: No Education:
[2023-08-12] MEDS: ONDANSETRON INJ 4 MG/2 ML VIAL IV PUSH (08:13)
[2023-08-12] MEDS: SODIUM CHLORIDE 0.9% IV 1,000 ML 999 ML IV CONT (08:13)
[2023-08-12 08:15] LABS: Basophils Percent Auto 0.2 % (0.2-1.2); Eosinophils Absolute Auto 0.2 K/mm3 (0-0.3); Eosinophils Percent Auto 3.4 % (0-4.4); Hematocrit 35.1 % (37.0-47.0); Hemoglobin 11.2 g/dL (12.0-15.0); Immature Granulocyte Absolute 0.02 K/mm3 (0.00-0.031); Immature Granulocyte Percent A 0.3 % (0-0.5); Lymphocytes Absolute Auto 1.19 K/mm3 (0.9-3.2); Lymphocytes Percent Auto 19.5 % (18.3-44.2); Mean Corpuscular HGB Conc 31.9 g/dl (32-36); Mean Corpuscular Volume 97.2 fl (80-100); Mean Platelet Volume 9.6 fl (7.4-10.4); Monocytes Absolute Auto 0.6 K/mm3 (0.1-0.6); Monocytes Percent Auto 10.5 % (2.6-8.5); Neutrophils Percent Auto 66.1 % (45.5-73.1); Platelet Count Result 215 k/mm3 (150-375); Red Blood Count 3.61 M/mm3 (4.2-5.4); Red Cell Distribution Width 15.6 % (11.5-14.5); White Blood Count 6.1 K/mm3 (4.5-10.0)
[2023-08-12 08:27] LABS: Alanine Aminotransferase 21 U/L (6-35); Alkaline Phosphatase 46 U/L (38-126); Anion Gap 8 mmol/L (8-16); Aspartate Amino Transferase 36 U/L (14-36); Bilirubin,Total 0.9 mg/dL (0.2-1.3); Blood Urea Nitrogen 10 mg/dL (7-17); Calcium 8.6 mg/dL (8.4-10.2); Carbon Dioxide 30 mmol/L (22-30); Chloride 101 mmol/L (98-107); Estimated CRCL calculation 61 ml/min; Estimated Glomerular Filt Rate > 60; Glucose 147 mg/dL (65-110); Lipase 109 U/L (23-300); Potassium 2.6 mmol/L (3.4-5.0); Sodium 139 mmol/L (137-145)
--- NOTE | 2023-08-12 08:28 | ECG_ITS ---
Measurements Intervals [place] Rate: 91 P: 54 [place]: 168 QRS: 97 QRSD: 101 T: -2 QT: 377 QTc: 465 Interpretive Statements SINUS RHYTHM RIGHT AXIS DEVIATION POSSIBLE LEFT ATRIAL ENLARGEMENT ST-T WAVE ABNORMALITY IN ANT/INF LEADS- CONSIDER ISCHEMIA ABNORMAL ECG COMPARED TO ECG 10/16/2021 01:29:09 NO SIGNIFICANT CHANGES Electronically Signed On 08-12-2023 8:43:33 CDT by Temo Burciaga D.O.
[2023-08-12] MEDS: POTASSIUM CHLORIDE 20 MEQ ER TABLET 40 MEQ PO (08:40)
== END 2023-08-12 13:06 | disposition home or self-care (01) ==
PROVIDERS: Emergency Provider Emergency Medicine; PCP Family Medicine
DX: E87.6 Hypokalemia (principal); R19.7 Diarrhea, unspecified; I27.20 Pulmonary hypertension, unspecified; I70.0 Atherosclerosis of aorta; I70.8 Atherosclerosis of other arteries; I25.10 Atherosclerotic heart disease of native coronary artery without angina pectoris; I10 Essential (primary) hypertension; J45.40 Moderate persistent asthma, uncomplicated; J43.9 Emphysema, unspecified; E11.9 Type 2 diabetes mellitus without complications; E78.2 Mixed hyperlipidemia; E55.9 Vitamin D deficiency, unspecified; E66.9 Obesity, unspecified; Z68.32 Body mass index [BMI] 32.0-32.9, adult; D75.1 Secondary polycythemia; G47.9 Sleep disorder, unspecified; Z79.82 Long term (current) use of aspirin
CPT/HCPCS: 36415; 80053; 83690; 85025; 93005; 96361; 96374; 99285; A9270; J2405; J7030

== ENCOUNTER 2023-08-28 17:50 | Emergency (ER) | payer MEDICARE, SELFPAY ==
--- NOTE | ~2023-08-28 | CT_ITS ---
EXAMINATION: CT abdomen pelvis w con DATE: 08/29/2023 01:43 INDICATION: Abdominal pain. Nausea, vomiting, and diarrhea. TECHNIQUE: Computed tomography (CT) of the abdomen and pelvis was performed with 100 mL Omnipaque 350 intravenous contrast. Automated exposure control and iterative reconstruction technique were employe d. The dose-length product was 860.20 mGy-cm. COMPARISON: CT abdomen and pelvis 02/25/2021 FINDINGS: The visualized portions of the lung bases demonstrate mild atelectasis. No pleural effusion . Cardiomegaly is noted. There is a small pericardial effusion. The central pulmonary arteries are en larged, consistent with pulmonary arterial hypertension. There is periportal edema in the liver. The gallbladder is normal in size. There is a small sliding hiatal hernia. The spleen, pancreas, adrenal glands, and kidneys are normal. There is calcified atherosclerosis of the aorta and many of the other arteries. There is a small volume of ascites. There is diverticulosis of the colon without evidence of diverticulitis. There is widespread wall thickening of colon and small bowel. The appendix is norm al. There is edema in the body wall fat and intra-abdominal fat. There are no pathologically enlarged lymph nodes. There is severe osteoarthritis of the hips. There is mild thoracic and lumbar spondylos is. IMPRESSION: 1. Diffuse wall thickening of small and large bowel, which may be secondary to interstitial edema or enterocolitis. 2. Small volume of ascites. 3. Small pericardial effusion. Reviewed, dictated and finalized at location E.
[2023-08-28 17:54] VITALS: BP 163/71; PULSE 92; RESP 20; TEMP 36.8; O2SAT 97
[2023-08-28 18:14] LABS: Basophils Percent Auto 0.7 % (0.2-1.2); Eosinophils Absolute Auto 0.2 K/mm3 (0-0.3); Eosinophils Percent Auto 4.8 % (0-4.4); Hematocrit 33.4 % (37.0-47.0); Hemoglobin 10.8 g/dL (12.0-15.0); Immature Granulocyte Absolute 0.02 K/mm3 (0.00-0.031); Immature Granulocyte Percent A 0.4 % (0-0.5); Lymphocytes Absolute Auto 1.25 K/mm3 (0.9-3.2); Lymphocytes Percent Auto 27.5 % (18.3-44.2); Mean Corpuscular HGB Conc 32.3 g/dl (32-36); Mean Corpuscular Hemoglobin 30.8 pg (26-34); Mean Corpuscular Volume 95.2 fl (80-100); Mean Platelet Volume 9.7 fl (7.4-10.4); Monocytes Absolute Auto 0.6 K/mm3 (0.1-0.6); Neutrophils Absolute Auto 2.4 K/mm3 (1.3-6.7); Neutrophils Percent Auto 53.6 % (45.5-73.1); Platelet Count Result 221 k/mm3 (150-375); Red Blood Count 3.51 M/mm3 (4.2-5.4); Red Cell Distribution Width 16.2 % (11.5-14.5); White Blood Count 4.6 K/mm3 (4.5-10.0)
[2023-08-28 18:27] LABS: Alanine Aminotransferase 20 U/L (6-35); Albumin Level 3.8 g/dL (3.5-5.1); Alkaline Phosphatase 44 U/L (38-126); Anion Gap 4 mmol/L (8-16); Aspartate Amino Transferase 39 U/L (14-36); Blood Urea Nitrogen 5 mg/dL (7-17); Calcium 8.5 mg/dL (8.4-10.2); Carbon Dioxide 29 mmol/L (22-30); Chloride 102 mmol/L (98-107); Estimated CRCL calculation 61 ml/min; Estimated Glomerular Filt Rate > 60; Glucose 112 mg/dL (65-110); Lipase 82 U/L (23-300); Potassium 2.9 mmol/L (3.4-5.0); Sodium 135 mmol/L (137-145)
[2023-08-28 20:24] LABS: Appearance Urine Cloudy (Clear); Bacteria Urine Rare /hpf; Bilirubin Urine Negative (Negative); Blood Urine Negative (Negative); Color Urine Yellow (Yellow); Glucose Urine UA Negative (Negative); Ketones Urine Negative (Negative); Leukocyte Esterase Ur 2+ LEU/UL (Negative); Nitrate Urine Negative (Negative); Non Pathogenic Casts 0-2; Protein Urine Negative (Negative); RBC Urine 0-2 /hpf (0-2); Specific Grav Ur 1.008 (1.001-1.035); Squamous Epithelial Cell Urine Occasional /hpf (Few); Urobilinogen Urine 0.2 mg/dL (<2.0); pH Urine 5.5 (5.0-9.0)
[2023-08-28 20:29] LABS: Add Urine Microscopic? YES
[2023-08-29] VITALS (29 sets, daily range): BP systolic 134–172; BP diastolic 67–90; PULSE 69–105; RESP 12–24; TEMP 36.9; O2SAT 90–100
[2023-08-29] MEDS: SODIUM CHLORIDE 0.9% IV 1,000 ML 999 ML IV CONT (01:05)
[2023-08-29] MEDS: KCL 20 MEQ/SW 100 ML 100 ML 50 MEQ IVPB (01:06)
[2023-08-29] MEDS: ONDANSETRON INJ 4 MG/2 ML VIAL IV PUSH (01:06)
[2023-08-29] MEDS: DICYCLOMINE HCL INJ 20 MG/2 ML VIAL IM (01:06)
[2023-08-29 01:22] LABS: Lactic Acid Reflex 0.6 mmol/L (0.7-2.0)
--- NOTE | 2023-08-29 01:23 | PC.NURSE ---
Patient taken to CT at this time.
[2023-08-29 01:28] LABS: Magnesium 2.1 mg/dL (1.6-2.3)
--- NOTE | 2023-08-29 01:48 | PC.NURSE ---
Patient O2 dipped down to 87% on RA after ambulating to the bathroom and back to her room. Patient states she has had increase in SOB after exertion. Patient placed on 2L via NC. ERP notified.
--- NOTE | 2023-08-29 02:27 | PC.NURSE ---
Attempted to trial patient of O2, patient dropped back down to 86% on RA. Patient placed back on 2L via NC. Patient endorses history of sleep apnea and use of cpap at home.
[2023-08-29] MEDS: SODIUM CHLORIDE 0.9% IV 250 ML 50 ML (03:20)
--- NOTE | 2023-08-29 03:53 | PC.NURSE ---
250ml bag of NS was used for dilution of potassium drip. Patient received 75ml of that bag.
--- NOTE | 2023-08-29 05:35 | PC.NURSE ---
Patient taken off O2 for trial off oxygen. Patient awake in room.
--- NOTE | 2023-08-29 05:51 | ED.GENADULT ---
HPI - General Adult General Chief complaint: Nausea/Vomiting/Diarrhea Stated complaint: Diarrhea, abd pain, vomiting Time Seen by Provider: 08/29/23 00:38 History of Present Illness HPI narrative: Patient is a 72-year-old female who presents the emergency department treatment of abdominal pain patient reports has been having diarrhea for 4 weeks and abdominal pain for 2 weeks patient reports has been having nausea and vomiting and was recently seen because her potassium levels were low. Related Data Home Medications Medication Instructions Recorded Confirmed cyanocobalamin (vitamin B-12) 100 100 mcg PO DAILY 08/27/20 08/19/23 mcg tablet tadalafil 20 mg tablet 40 mg PO DAILY 02/28/21 08/19/23 treprostinil diolamine 2.5 mg 8 mg PO Q8H 08/19/23 08/19/23 tablet,extended release (Orenitram) Allergies Allergy/AdvReac Type Severity Reaction Status Date / Time codeine Allergy Unknown Unknown Verified 08/29/23 00:31 Qzbhntg-LXG-GbQ Reductase Allergy Unknown myalgia Verified 08/29/23 00:31 Inhibitor [Eofrwdv-Ibj-Hob Reductase Inhibitor] metoprolol AdvReac Severe LOC Verified 08/29/23 00:31 hydromorphone AdvReac Unknown Nausea and Verified 08/29/23 00:31 Vomiting Review of Systems Review of Systems: A 10 system review of systems was completed on the patient and is negative except for what is stated in the HPI. Nursing and ancillary documentation was reviewed. [facility] Past Medical History Medical History Abdominal aortic atherosclerosis Acquired deformity of left foot Acquired polycythemia Acute maxillary sinusitis, unspecified Asthma Atherosclerosis of aorta Atherosclerosis of both iliac arteries Atherosclerosis of iliac artery Benign reactive hypertension Borderline diabetes Controlled diabetes mellitus without complication Coronary atherosclerosis Impingement syndrome of right shoulder Mixed hyperlipidemia Mixed hyperlipidemia Moderate persistent asthma without complication Obesity (BMI 35.0-39.9 without comorbidity) Obesity, unspecified Postmenopausal Primary osteoarthritis of right shoulder Pulmonary emphysema Pulmonary HTN Pulmonary HTN Reactive airway disease with wheezing without complication Screening for diabetic peripheral neuropathy Sleep disorder Tendinitis of right rotator cuff Type 2 diabetes mellitus without complications Vitamin D deficiency, unspecified Wheezing Family History Family History Mother Hypertension Cerebrovascular accident Family history of diabetes mellitus in first degree relative Diabetes mellitus Sibling Diabetes mellitus Hypertension Father Family history of malignant neoplasm of esophagus Other Family history of cardiovascular disease Family history of malignant neoplasm Family history of malignant neoplasm of breast Family history of malignant neoplasm of thyroid Social History Social History Social History: Smoking status: Never smoker Second hand tobacco smoke exposure: Yes Alcohol intake: never Alcohol use details: rare, holidays Substance use: never Substance use type: does not use Lack of Transportation: No Lack of Food: Never True Current Housing: I Have Housing Concerned About Future Housing: No Difficulty Paying Gas/Electric Bills: No Difficulty Paying for Meds: YES Currently Unemployed: YES Education: High School Diploma/GED Difficulty w/ Childcare or Family Care: No Living arrangements: with family Additional living arrangements comments: pt lives with her son Occupation/Education: retired Gender identity (if verbalized by the patient): Female Sexual Orientation (if Verbalized by the Patient): Straight or Heterosexual Spiritual care concerns: No Exam Narrative: GENERAL: Well
== END 2023-08-29 06:25 | disposition home or self-care (01) ==
PROVIDERS: Emergency Medicine; Emergency Provider Emergency Medicine; PCP Family Medicine
DX: K52.9 Noninfective gastroenteritis and colitis, unspecified (principal); N39.0 Urinary tract infection, site not specified; E87.6 Hypokalemia; I70.0 Atherosclerosis of aorta; I70.8 Atherosclerosis of other arteries; I10 Essential (primary) hypertension; I27.20 Pulmonary hypertension, unspecified; J45.30 Mild persistent asthma, uncomplicated; D75.1 Secondary polycythemia; E11.9 Type 2 diabetes mellitus without complications; E78.2 Mixed hyperlipidemia; E66.9 Obesity, unspecified; Z68.32 Body mass index [BMI] 32.0-32.9, adult; E55.9 Vitamin D deficiency, unspecified; M19.011 Primary osteoarthritis, right shoulder; G47.9 Sleep disorder, unspecified; Z77.22 Contact with and (suspected) exposure to environmental tobacco smoke (acute) (chronic)
CPT/HCPCS: 36415; 74177; 80053; 81001; 83605; 83690; 83735; 85025; 87086; 96365; 96366; 96372; 96375; 99284; J0500; J2405; J3480; J7030; J7050; Q9967

== ENCOUNTER 2023-09-08 12:52 | Outpatient (CLI) | payer MEDICARE, SELFPAY ==
--- NOTE | ~2023-09-08 | MR_ITS ---
MR breast BI wo/w con 09/11/2023 09:32 CDT INDICATION: Follow-up left breast masses demonstrated on prior MRI examination dated 05/06/2023 TECHNIQUE: MRI of the breasts perform using standard protocol pre-and post IV contrast with the follo wing sequences: Axial T2 STIR, axial T1, axial vibrant T1 with fat suppression precontrast and multip hasic postcontrast. 18 cc MultiHance administered intravenously. COMPARISON: Comparison to multiple prior studies sequentially, with oldest reviewed study dated 08/23/2020. FINDINGS: There are no abnormalities on the precontrast sequences. There is mild background parenchym al enhancement. No enhancing lesions following contrast administration. No areas of enhancement denis ting threshold criteria on CAD analysis. There is right axillary lymphadenopathy, largest measuring 2 .2 cm. LEFT BREAST: No signal abnormalities on precontrast sequences. There is mild background parenchymal enhancement. There are clustered enhancing mass is in the upper inner quadrant of the left breast at 11:00 anteriorly, largest measuring 2.5 x 2 x 1.7 cm. There is left axillary lymphadenopathy, largest measuring 1.7 cm. IMPRESSION: 1: Right breast: Right axillary lymphadenopathy, nonspecific. 2: Left breast: Clustered masses centered in the upper inner quadrant of the left breast anteriorly, largest measuring 2.5 cm. Correlation with diagnostic bilateral mammogram and bilateral breast ultra sound recommended. BI-RADS CATEGORY 0 - INCOMPLETE STUDY, NEED ADDITIONAL IMAGING EVALUATION. Reviewed, dictated and finalized at location B. IMPRESSION: 1: Right breast: Right axillary lymphadenopathy, nonspecific. 2: Left breast: Clustered masses centered in the upper inner quadrant of the l eft breast anteriorly, largest measuring 2.5 cm. Correlation with diagnostic bi lateral mammogram and bilateral breast ultrasound recommended. BI-RADS CATEGORY 0 - INCOMPLETE STUDY, NEED ADDITIONAL IMAGING EVALUATION.
== END 2023-09-08 12:53 | disposition home or self-care (01) ==
PROVIDERS: PCP Family Medicine; Visit Provider Physician Assistant Surgical
DX: N63.0 Unspecified lump in unspecified breast (principal); R92.8 Other abnormal and inconclusive findings on diagnostic imaging of breast
CPT/HCPCS: 77049; A9577; C8908

== ENCOUNTER 2023-09-21 13:51 | Emergency (ER) | payer MEDICARE, SELFPAY ==
[2023-09-21] VITALS (30 sets, daily range): BP systolic 143–188; BP diastolic 85–130; PULSE 73–101; RESP 15–25; TEMP 36.8–36.9; O2SAT 96–100
--- NOTE | ~2023-09-21 | XR_ITS ---
EXAMINATION: XR chest 2V DATE: 09/21/2023 14:39 INDICATION: 4-5 days of shortness of breath TECHNIQUE: frontal and lateral views of the chest were obtained. COMPARISON: Chest CT dated 08/10/2020 FINDINGS: Again seen is cardiomegaly and prominent enlargement of the central pulmonary arteries consistent wit h pulmonary arterial hypertension. No focal airspace opacities, pulmonary edema, pleural effusion or pneumothorax. Small curvilinear metallic density potentially representing a biopsy marker at the left axilla. IMPRESSION: 1. Cardiomegaly with prominent enlargement of the central pulmonary arteries consistent with pulmonar y arterial hypertension. Reviewed, dictated and finalized at location A. NTATION & MOBILITY SPECIALIST IMPRESSION: 1. Cardiomegaly with prominent enlargement of the central pulmonary arteries co nsistent with pulmonary arterial hypertension.
--- NOTE | 2023-09-21 14:05 | ECG_ITS ---
Measurements Intervals [place] Rate: 98 P: 56 SD: 163 QRS: 117 QRSD: 94 T: -50 QT: 398 QTc: 509 Interpretive Statements SINUS RHYTHM LEFT ATRIAL ENLARGEMENT INCOMPLETE RIGHT BUNDLE BRANCH BLOCK ST-T WAVE ABNORMALITY IN ANT/INF LEADS- CONSIDER ISCHEMIA BASELINE ARTIFACT- I, II, III, AVR, AVL, AVF, V1-V3 ABNORMAL ECG COMPARED TO ECG 08/12/2023 08:33:55 INCOMPLETE RIGHT BUNDLE-BRANCH BLOCK NOW PRESENT Electronically Signed On 09-21-2023 14:47:51 NUCLEAR EQUIPMENT RESEARCH ENGINEER by Temo Burciaga D.O.
[2023-09-21 14:29] LABS: Basophils Percent Auto 0.5 % (0.2-1.2); Eosinophils Absolute Auto 0.1 K/mm3 (0-0.3); Eosinophils Percent Auto 2.5 % (0-4.4); Hematocrit 35.2 % (37.0-47.0); Hemoglobin 11.1 g/dL (12.0-15.0); Immature Granulocyte Absolute 0.05 K/mm3 (0.00-0.031); Immature Granulocyte Percent A 0.9 % (0-0.5); Lymphocytes Absolute Auto 0.99 K/mm3 (0.9-3.2); Lymphocytes Percent Auto 17.8 % (18.3-44.2); Mean Corpuscular HGB Conc 31.5 g/dl (32-36); Mean Corpuscular Hemoglobin 30.9 pg (26-34); Mean Corpuscular Volume 98.1 fl (80-100); Mean Platelet Volume 10.7 fl (7.4-10.4); Monocytes Absolute Auto 0.7 K/mm3 (0.1-0.6); Monocytes Percent Auto 11.7 % (2.6-8.5); Neutrophils Absolute Auto 3.7 K/mm3 (1.3-6.7); Neutrophils Percent Auto 66.6 % (45.5-73.1); Platelet Count Result 265 k/mm3 (150-375); Red Blood Count 3.59 M/mm3 (4.2-5.4); Red Cell Distribution Width 17.2 % (11.5-14.5); White Blood Count 5.6 K/mm3 (4.5-10.0)
[2023-09-21 14:42] LABS: INR 0.9; Partial Thromboplastin Time 29.4 SECONDS (22.3-36.8); Prothrombin Time 12.7 Seconds (11.1-14.7)
[2023-09-21 14:44] LABS: Alanine Aminotransferase 27 U/L (6-35); Albumin Level 4.1 g/dL (3.5-5.1); Alkaline Phosphatase 45 U/L (38-126); Anion Gap 6 mmol/L (8-16); Aspartate Amino Transferase 64 U/L (14-36); Bilirubin,Total 1.2 mg/dL (0.2-1.3); Blood Urea Nitrogen 6 mg/dL (7-17); Calcium 9.3 mg/dL (8.4-10.2); Carbon Dioxide 34 mmol/L (22-30); Chloride 96 mmol/L (98-107); Estimated CRCL calculation 67 ml/min; Estimated Glomerular Filt Rate > 60; Glucose 103 mg/dL (65-110); Potassium 3.3 mmol/L (3.4-5.0); Sodium 136 mmol/L (137-145)
[2023-09-21] MEDS: ALBUTEROL SULFATE NEB 2.5 MG/3 ML INH INHALATION (15:37)
[2023-09-21] MEDS: IPRATROPIUM BR 0.02% INH SOLN 0.5 MG/2.5 ML VIAL INHALATION (15:37)
[2023-09-21 15:56] LABS: NT Pro B Type Natriuretic Pept 3590 pg/mL (19.9-100)
--- NOTE | 2023-09-21 16:04 | ED.SOB ---
HPI - SOB/Dyspnea General Chief Complaint: Shortness of Breath/Dyspnea Stated Complaint: low oxygen Time Seen by Provider: 09/21/23 14:09 History of Present Illness HPI Narrative: Patient is a 72-year-old female who presents ER with increased shortness of breath from breast clinic. Patient hospitalized last week at [facility] for pulmonary hypertension. She is on Orenitram to manage her symptoms. She has been having difficulty keeping her medication down due to cough and congestion as well as dyspnea. She has posttussive emesis. Symptoms are worse with lying down. No increased edema in her legs. Reports compliance with home meds otherwise. No fevers or chills or sweats. Denies chest pain. Related Data Home Medications Medication Instructions Recorded Confirmed cyanocobalamin (vitamin B-12) 100 100 mcg PO DAILY 08/27/20 09/17/23 mcg tablet tadalafil 20 mg tablet 40 mg PO DAILY 02/28/21 09/17/23 treprostinil diolamine 2.5 mg 8 mg PO Q8H 08/19/23 09/17/23 tablet,extended release (Orenitram) Allergies Allergy/AdvReac Type Severity Reaction Status Date / Time codeine Allergy Unknown Unknown Verified 09/21/23 13:04 Mtyvvxy-UUE-YmA Reductase Allergy Unknown myalgia Verified 09/21/23 13:04 Inhibitor [Dkqwvtt-Gnz-Ica Reductase Inhibitor] metoprolol AdvReac Severe LOC Verified 09/21/23 13:04 hydromorphone AdvReac Unknown Nausea and Verified 09/21/23 13:04 Vomiting Review of Systems Review of Systems: All systems reviewed & are unremarkable except as noted in HPI and below Constitutional: Constitutional: Denies chills, Reports fatigue and Denies fever(s) ENT: Denies nasal congestion and Denies sore throat Cardiovascular: Cardiovascular: Denies chest pain, Denies rapid heart rate and Denies radiating jaw, neck or arm pain Respiratory: Respiratory: Reports chest congestion, Reports cough, Reports dyspnea and Reports wheezing Gastrointestinal: Gastrointestinal: Denies abdominal pain and Reports vomiting (Posttussive emesis) Genitourinary: Genitourinary: Reports no additional female genitourinary complaints Musculoskeletal: Musculoskeletal: Reports no additional musculoskeletal complaints PMFSH Past Medical History Medical History Abdominal aortic atherosclerosis Acquired deformity of left foot Acquired polycythemia Acute maxillary sinusitis, unspecified Asthma Atherosclerosis of aorta Atherosclerosis of both iliac arteries Atherosclerosis of iliac artery Benign reactive hypertension Borderline diabetes Controlled diabetes mellitus without complication Coronary atherosclerosis Impingement syndrome of right shoulder Mixed hyperlipidemia Mixed hyperlipidemia Moderate persistent asthma without complication Obesity (BMI 35.0-39.9 without comorbidity) Obesity, unspecified Postmenopausal Primary osteoarthritis of right shoulder Pulmonary emphysema Pulmonary HTN Pulmonary HTN Reactive airway disease with wheezing without complication Screening for diabetic peripheral neuropathy Sleep disorder Tendinitis of right rotator cuff Type 2 diabetes mellitus without complications Vitamin D deficiency, unspecified Wheezing Family History Family History Mother Hypertension Cerebrovascular accident Family history of diabetes mellitus in first degree relative Diabetes mellitus Sibling Diabetes mellitus Hypertension Father Family history of malignant neoplasm of esophagus Other Family history of cardiovascular disease Family history of malignant neoplasm Family history of malignant neoplasm of breast Family history of malignant neoplasm of thyroid Social History Social History Social History: Smoking status: Never smoker Second hand tobacco smoke exposure: Yes Alcohol intake: never Alcohol use details: rare,
[2023-09-21] MEDS: FUROSEMIDE INJ 40 MG/4 ML VIAL IV PUSH (16:46)
[2023-09-21] MEDS: ONDANSETRON INJ 4 MG/2 ML VIAL IV PUSH (16:47)
--- NOTE | 2023-09-21 18:26 | PC.NURSE ---
Report given to JOSE Fuentes, in [id number] at [facility]. All questions answered.
[2023-09-21 20:02] LABS: Influenza A QL RT-PCR Negative (Negative); Influenza B QL RT-PCR Negative (Negative); RSV RNA, RT-PCR Negative (Negative); SARS-CoV-2 RNA PCR Negative (Negative)
== END 2023-09-21 19:30 | disposition short-term general hospital (02) ==
PROVIDERS: Emergency Provider Emergency Medicine; PCP Family Medicine
DX: I27.20 Pulmonary hypertension, unspecified (principal); I50.9 Heart failure, unspecified; R09.02 Hypoxemia; Z20.822 Contact with and (suspected) exposure to COVID-19; I70.0 Atherosclerosis of aorta; I70.8 Atherosclerosis of other arteries; I25.10 Atherosclerotic heart disease of native coronary artery without angina pectoris; I11.0 Hypertensive heart disease with heart failure; J45.909 Unspecified asthma, uncomplicated; J43.9 Emphysema, unspecified; E11.9 Type 2 diabetes mellitus without complications; E78.2 Mixed hyperlipidemia; E66.9 Obesity, unspecified; Z68.30 Body mass index [BMI] 30.0-30.9, adult; E55.9 Vitamin D deficiency, unspecified; D75.1 Secondary polycythemia; I51.7 Cardiomegaly; Z79.82 Long term (current) use of aspirin; I45.10 Unspecified right bundle-branch block; R94.31 Abnormal electrocardiogram [ECG] [EKG]
CPT/HCPCS: 36415; 71046; 80053; 83880; 85025; 85610; 85730; 87637; 93005; 94640; 96374; 96375; 99285; J1940; J2405

== ENCOUNTER → 2023-11-04 07:42 | Outpatient (CLI) | payer MEDICARE, SELFPAY ==
--- NOTE | ~2023-11-04 | MMUS_ITS ---
EXAMINATION: MM diagnostic skyler LT w yamilka, US breast LT complete HISTORY: Clustered enhancing masses were reported in the upper inner quadrant of left breast at 11:00 anteriorly, largest measuring 2.5 x 2.1 0.7 cm, on 09/04/2023 MR breast examination TECHNIQUE: ML, MLO and CC 3-D tomosynthesis images of the left breast were performed and synthetic 2- D images were generated. CAD analysis was submitted and interpreted. High resolution complete left br east ultrasound examination including all 4 quadrants and subareolar area was performed. COMPARISON: 09/04/2023 MRI breast examination 04/27/2023 MRI breast examination 03/27/2023 diagnostic left mammogram and limited left breast ultrasound 03/11/2023, 09/25/2021 bilateral screening mammogram examinations BREAST PARENCHYMAL COMPOSITION: There are scattered areas of fibroglandular density. FINDINGS: MAMMOGRAPHIC FINDINGS: There are 2 biopsy markers in the outer mid left breast. No suspicious mammographic mass lesion or architectural distortion, malignant calcification, skin thi ckening or retraction is evident. Left axillary lymph nodes appear relatively stable since 09/25/2021. ULTRASOUND: 12:00 3 cm from nipple: There is an approximately 8.5 x 14 x 12 mm ill-defined poorly circumscribed a brian of hypoechogenicity with posterior shadowing, without significant mammographic correlate. No inte rnal vascularity is noted. Consider ultrasound-guided biopsy. 11-12:00 5 cm from nipple at area of palpable abnormality: Parallel circumscribed hypoechoic 7 x 11 x 9.5 mm irregular hypoechoic lesion without internal vascularity, with some posterior shadowing. Ultr asound-guided biopsy is recommended. 3:00 4 cm from nipple: There is an irregular heterogeneous hypoechoic approximately 8 mm mass with in ternal vascularity, with elongated irregular tentacle-like extensions from this lesion, 1 tentacle ex tending into the subcutaneous area. A biopsy marker is noted within this mass, with reported benign p athology. Consider repeat ultrasound-guided biopsy. IMPRESSION: 1. There are several suspicious irregular hypoechoic sonographic areas, including 12:00 3 cm from nip ple, 1100-12:00 5 cm from nipple and 3:00 4 cm from nipple 2. Ultrasound-guided biopsy of these 3 areas recommend BI-RADS category 4, suspicious findings. Dr. Eugene telephoned the report and ultrasound-guided biopsy recommendations on 11/04/2023 [address] Ford. Reviewed, dictated and finalized at location A. LY NURSE IMPRESSION: 1. There are several suspicious irregular hypoechoic sonographic areas, includi ng 12:00 3 cm from nipple, 1100-12:00 5 cm from nipple and 3:00 4 cm from nippl e 2. Ultrasound-guided biopsy of these 3 areas recommend BI-RADS category 4, suspicious findings. Dr. Eugene telephoned the report and ultrasound-guided biopsy recommendations on 11/04/2023 [place] [address] Ford.
== END ==
PROVIDERS: PCP Physician Assistant Surgical; Visit Provider Physician Assistant Surgical
DX: N63.20 Unspecified lump in the left breast, unspecified quadrant (principal); R92.8 Other abnormal and inconclusive findings on diagnostic imaging of breast
CPT/HCPCS: 76641; 77061; 77065; G0279

== ENCOUNTER 2023-11-19 09:03 | Outpatient (CLI) | payer MEDICARE, SELFPAY ==
--- NOTE | ~2023-11-19 | MMUS_ITS ---
EXAMINATION: US breast biopsy LT w image, MM post biopsy invasive LT DATE: 11/19/2023 10:56 (accession [id number]), 11/19/2023 11:16 (accession [id number]) INDICATION: Patient with history of benign left breast biopsy presented on 11/04/2023 with palpable l umps of the upper left breast. Ultrasound-guided core biopsy is requested to evaluate for malignancy. TECHNIQUE AND FINDINGS: The risks and potential benefits of the procedure were discussed with the patient including bleeding and infection. A time out was performed. The skin of the left breast was prepared and draped in usual sterile fashion. 1% lidocaine was used for superficial anesthesia. 1% lidocaine with epinephrine was used for deep anesthesia. First, a vacuum-assisted biopsy needle was advanced through to the outer edge of the lesion at the 12 :00 location, 3 cm from the nipple from a lateral approach utilizing sonographic guidance. A total of four tissue core samples were obtained through the lesion. A tissue marker clip was then placed at t he biopsy site. Hemostasis was achieved. Next, a vacuum-assisted biopsy needle was advanced through t o the outer edge of the lesion at the 11:00 location, 4.5 cm from the nipple from a superolateral denys alvarez utilizing sonographic guidance. A total of four tissue core samples were obtained through the l esion. A tissue marker clip was then placed at the biopsy site. A sterile bandage was applied. The patient tolerated procedure well and there was no evidence of immediate complication. The patient was given verbal instructions to return to the Emergency Department in the event of severe breast pa in or rapid breast enlargement. A two view left breast mammogram was obtained to document tissue sury er clip placement. IMPRESSION: 1. Successful ultrasound-guided vacuum-assisted biopsy of left breast masses with tissue marker place ment. Reviewed, dictated and finalized at location A. IBLE PACKER IMPRESSION: 1. Successful ultrasound-guided vacuum-assisted biopsy of left breast masses wi th tissue marker placement.
== END 2023-11-19 09:04 | disposition home or self-care (01) ==
PROVIDERS: PCP Family Medicine; Visit Provider Surgery
DX: D24.2 Benign neoplasm of left breast (principal); R92.8 Other abnormal and inconclusive findings on diagnostic imaging of breast
CPT/HCPCS: 19083; 88305; A4648